=== PATIENT | female | born 2000 | race Two or more races ===

== ENCOUNTER 2024-06-13 06:34 | Day surgery (SDC) | payer OTHER ==
[2024-06-12 10:08] VITALS: BP 112/76
[2024-06-12 14:05] LABS: INR 1.02; PARTIAL THROMBOPLASTIN TIME 31.2 SECONDS (22.0-34.0); PROTHROMBIN TIME 11.1 SECONDS (9.0-11.5)
[~2024-06-13] VITALS: Ht 170.2 cm; Wt 49.9 kg
[2024-06-13] MEDS ORDERED: CEFAZOLIN SODIUM 1,000 MG VIAL ONE (09:37)
[2024-06-13] MEDS ORDERED: CHLORHEXIDINE GLUCONATE 120 ML BOTTLE TOP ONE ×2 (09:38→10:15)
[2024-06-13] MEDS ORDERED: CEFAZOLIN SODIUM 1,000 MG VIAL IV ONE (10:15)
[2024-06-13] MEDS ORDERED: MORPHINE SULFATE 4 MG/ML VIAL IV ONE ×2 (13:05→14:20)
== END 2024-06-13 14:50 | disposition home or self-care (01) ==
LOC: CIR.AMB 06:34
PROVIDERS: ATTEND Surgery
DX: D48.61 Neoplasm of uncertain behavior of right breast (principal); D48.62 Neoplasm of uncertain behavior of left breast